=== PATIENT | female | born 1940 | race Caucasian/White ===

== ENCOUNTER 2018-08-01 09:42 | Outpatient (CLI) | payer MEDICARE, OTHER ==
--- NOTE | 2018-08-01 10:28 | RAD ---
AP and lateral views lumbar spine Spinal stenosis AP and lateral views lumbar spine demonstrates 5 nonrib-bearing lumbar vertebra. A midthoracic dorsal column stimulator is in place. There is vacuum disc changes seen at the L5-S1 intervertebral disc space. Mild anterolisthesis of L4 on L5 seen. No evidence of acute fracture seen. Atherosclerotic calcific lesions seen in the abdominal aorta. IMPRESSION: L5-S1 intervertebral disc space height loss and vacuum disc changes.
--- NOTE | 2018-08-01 10:30 | RAD ---
Exam: 3 views of the thoracic spine HISTORY: Spinal stenosis with neurogenic pain; dorsal column stimulator COMPARISON: None FINDINGS: 3 views of the thoracic spine shows normal height and alignment of the vertebral bodies and intervertebral discs without fracture or subluxation. Small osteophytes are seen in the mid thoracic spine. A dorsal colon stimulator is seen with its tip at the T7 level. IMPRESSION: Mild degenerative changes of the thoracic spine as above.
== END 2018-08-01 09:43 | disposition home or self-care (01) ==
LOC: RAD 09:42
PROVIDERS: ATTEND Nurse Practitioner Family
DX: M48.062 Spinal stenosis, lumbar region with neurogenic claudication (principal); M47.814 Spondylosis without myelopathy or radiculopathy, thoracic region
CPT/HCPCS: 72072; 72100

== ENCOUNTER 2019-11-20 14:41 | Observation (INO) | payer MEDICARE, OTHER ==
[2019-11-20 15:09] LABS: #Basophils 0.1 thou/uL (0.0-0.2); #Lymphocytes 2.4 thou/uL (1.20-3.40); #Monocytes 0.4 thou/uL (0.11-0.59); #Neutrophils 4.6 thou/uL (1.40-6.50); %Eosinophils 0.3 % (0.0-10.0); %Lymphocytes 31.8 % (21.0-51.0); %Monocytes 5.4 % (0.0-10.0); %Neutrophils 61.4 % (42.0-75.0); Hemoglobin 11.5 g/dL (12.0-16.0); Mean Corpuscular HGB CONC 33.8 g/dL (32.0-36.0); Mean Corpuscular Hemoglobin 33.2 pg (27.0-31.0); Mean Corpuscular Volume 98.4 fL (78.0-98.0); Mean Platelet Volume 8.3 fL (7.4-10.4); Platelet Count 245 thou/uL (130-400); RBC Distribution Width 11.3 % (11.5-14.5); Red Blood Cell (RBC) Count 3.45 mill/uL (4.20-5.40); White Blood Cell (WBC) Count 7.4 thou/uL (4.8-10.8)
[2019-11-20 15:11] LABS: PTT 23.7 sec (22.9-36.1); Prothrombin Time 13.4 sec (12.0-14.7)
[2019-11-20 15:25] LABS: ALT (SGPT) 15 U/L (8-55); AST (SGOT) 18 U/L (5-34); Albumin 4.8 g/dL (3.4-4.8); Alkaline Phosphatase 59 U/L (40-110); Anion Gap 18 mmol/L (10-20); BUN (Urea Nitrogen) 63 mg/dL (9.8-20.1); Bilirubin, Total 0.3 mg/dL (0.2-1.2); CK (CPK) 33 U/L (29-168); Calc. Creatinine Clearance 0 mL/min (70-130); Carbon Dioxide 23 mmol/L (23-31); Chloride 104 mmol/L (98-107); Estimated GFR-MDRD 14; Globulin 2.5 g/dL (2.4-3.5); Glucose 113 mg/dL (83-110); Potassium 4.6 mmol/L (3.5-5.1); Protein, Total 7.3 g/dL (6.0-8.3); Sodium 140 mmol/L (136-145)
--- NOTE | 2019-11-20 15:46 | CT ---
CT BRAIN WITHOUT CONTRAST: HISTORY: Level 2 stroke. Right-sided numbness and tingling which is resolved FINDINGS: No evidence of acute infarct, hemorrhage, midline shift or abnormal extra-axial fluid collections is seen. There is evidence of chronic small vessel ischemic disease. The ventricular size is appropriate and the basilar cisterns are patent. The bony calvarium is intact. The visualized paranas al sinuses and mastoid air cells are well aerated. IMPRESSION: No CT evidence of acute intracranial process. Discussed over the telephone with ER physician Dr. Charisse Walker at 3:42 PM
[2019-11-20] MEDS ORDERED: Aspirin Chewable 81 MG TAB ONE (16:48)
[2019-11-20] MEDS ORDERED: Acetaminophen 325 MG TAB PO PRN (18:03)
[2019-11-20] MEDS ORDERED: Acetaminophen 650 MG Suppository PR PRN (18:03)
--- NOTE | 2019-11-20 18:59 | HP ---
TIME OF ASSESSMENT: 1700 hours. CHIEF COMPLAINT: Right-sided numbness and weakness. PRIMARY CARE PHYSICIAN: Tyrese Isaacs MD HISTORY OF PRESENT ILLNESS: Ms. Green is a 78-year-old woman, who presents with complaints of right upper and lower extremity numbness and tingling that woke her from sleep at approximately 2 a.m. this morning. The patient states that she was lying on her left side. Denies having any altered sensation or weakness to the right side of her face. She eventually fell back asleep and states she woke up at 9 a.m. this morning and though she did not have any residual symptoms, she called her primary care physician, who advised her to come in to the emergency department for further assessment and workup. The patient reports having similar symptoms one week ago, which again happened during her sleep and woke her up in the morning. The patient states at that time it had lasted several hours. She did not attempt to get up or do anything, but eventually her symptoms resolved on their own. She is unsure how long exactly it lasted, but states it was "a matter of hours." Denies experiencing any associated dizziness. No headaches or loss of vision. Reports noting some difficulty with her hearing today and states that it felt like sounds are muffled. Denies any ringing in her ears. Denies any changes in her speech. When she did eventually wake up and got ready to come to the ER. She did not experience gait disturbances. Reports being well in herself in recent days. Denies any changes with her appetite. No fevers. No chills or sweats. No chest pain, palpitations, or shortness of breath. No abdominal pain. She does suffer from chronic back pain and has a nerve stimulator in her mid back. She did call to see if her symptoms were associated with the stimulator, but was told it was unlikely as she experienced right upper extremity weakness and tingling, which is at the level above the stimulator. The patient denies any neck pain, discomfort, or stiffness. At present, she is back to her normal baseline. EMERGENCY DEPARTMENT COURSE: In the emergency department, she had an EKG done that showed normal sinus rhythm with a heart rate of 61. A CT of the head showed no acute intracranial process. Laboratory studies done showed a white count of 7.4, hemoglobin 11.5, hematocrit 33.9, platelets 245, glucose 107, sodium 140, potassium 4.6, BUN 63, creatinine 3.27, GFR 14. CK 33. Initial troponin negative. Magnesium 2. TSH 1.8. She was given 1 L of normal saline and 325 mg of aspirin. PAST MEDICAL HISTORY: 1. Hyperlipidemia, hypertension, pulmonary disease. 2. Sleep apnea. 3. Anxiety. PAST SURGICAL HISTORY: 1. Appendectomy. 2. Cholecystectomy. 3. Hysterectomy. 4. Back surgery. SOCIAL HISTORY: The patient lives at home with her . Reports drinking alcohol socially. Denies any tobacco use or illicit drug use. ALLERGIES: 1. ATENOLOL. 2. ATORVASTATIN. 3. GABAPENTIN. 4. LISINOPRIL. 5. TRAMADOL. CURRENT MEDICATIONS: 1. Chlorthalidone. 2. Verapamil. 3. Olmesartan. 4. Tizanidine. PHYSICAL EXAMINATION: GENERAL: The patient appears well developed, well nourished, and is in no acute distress. She is found resting comfortably on a stretcher. VITAL SIGNS: Temperature 98.1, pulse 60, blood pressure 156/73, respirations 18, O2 saturation 100% on room air. HEENT: Normocephalic and atraumatic. Pupils are equal, round, and reactive to light. Sclerae icterus. Oropharynx is clear. NECK: Supple. LUNGS: Clear to auscultation bilaterally without any wheezes, rales, or rhonchi. CARDIAC: Regular rate and rhythm. ABDOMEN: Soft, nontender, nondistended. Normoactive bowel sounds present. No guarding or rigidity. No renal angle tenderness. EXTREMITIES: No lower leg swelling or edema. NEUROLOGIC: Alert and oriented x3. Extraocular movements intact. Facial sensation normal and facial movements normal. Speech normal. Upper and lower extremities with 5/5 power and normal sensation. Coordination intact. Overall, no neuro deficits on exam. SKIN: Warm and dry. INVESTIGATIONS: As mentioned above in HPI. IMPRESSION AND PLAN: Ms. Green is a 78-year-old woman, who is being admitted for management of the following. 1. Cerebrovascular accident rule out. She reports having two separate episodes of right upper and lower extremity numbness and weakness. Symptoms have fully resolved. She does have a nerve stimulator for low back pain, but this is located in the mid back and her symptoms included the right upper extremity. CT head unremarkable. She is being admitted for further cerebrovascular accident workup. We will order an echo, MRI of the brain and consult Neurology. We will obtain carotid Dopplers. We will check lipid panel with morning labs. 2. Hypertension. Monitor blood pressure. Reconcile home medications once verified. 3. Acute kidney injury. The patient with a creatinine of 3.27 and GFR of 14. This is significantly altered from four years ago when her renal function was essentially normal, at which time, her GFR was 70. She has been given 1 L of normal saline in the ED. We will continue IV fluids and we will consult Nephrology given how reduced her GFR is. Continue to monitor renal function. Hold any nephrotoxic medications. 4. Hyperlipidemia. Reconcile home medications once verified. Again, we will check lipid panel with morning labs. 5. Chronic back pain. The patient has pain stimulator. We will reconcile home medications as appropriate. 6. Code status full. Surrogate decision maker is her , Pollo Green. Case discussed with Dr. Frederick, who agrees with plan of care as described above. Job ID: [id number]
[2019-11-20 19:04] VITALS: BMI 34.6
--- NOTE | 2019-11-20 21:26 | CON ---
DATE OF CONSULTATION: REASON FOR CONSULTATION: Elevated creatinine. HISTORY OF PRESENT ILLNESS: This is a very pleasant 78-year-old female who presented to the hospital with right-sided numbness and weakness. The patient last reported creatinine was 3.2, her prior creatinine was 0.8 four years ago. The patient denies any nausea, vomiting, or chest pain. The patient is taking hydrochlorothiazide, is not taking any NSAID. PAST MEDICAL HISTORY: Hypertension, pulmonary disease, sleep apnea, anxiety, appendectomy, cholecystectomy, hysterectomy, and back surgery. SOCIAL HISTORY: No alcohol or drug abuse. FAMILY HISTORY: Negative for ESRD. ALLERGIES: REVIEWED. MEDICATIONS: Home medication list reviewed. Hospital medications list reviewed. REVIEW OF SYSTEMS: 15-point review of system was performed, negative except for positives noted above. HEENT: Eyes intact, no diplopia. Ears: No hearing loss or earache. Nose: No discharge or bleeding. CHEST: No cough or phlegm. ABDOMEN: No nausea or vomiting. GENITOURINARY: No hematuria. No Mukherjee catheter. MUSCULOSKELETAL: No low back pain. No joint swelling or pain. NEUROLOGICAL: No syncope. No seizures. SKIN: No complaints of rash or itching. PSYCHIATRIC: No depression. CONSTITUTIONAL: No weight loss or loss of appetite. PHYSICAL EXAMINATION: GENERAL: The patient is awake and alert. VITAL SIGNS: Afebrile, pulse 75, breathing 16, and blood pressure 142/68. HEENT: Head normocephalic and atraumatic. Eyes intact, no ulcers. Nose intact, no ulcers. Ears intact, no ulcers. NECK: Supple. No JVD. CHEST: Symmetrical and clear. CARDIOVASCULAR: Shows S1 and S2, no rub, no murmur. GASTROINTESTINAL: Abdomen is soft, bowel sounds positive. EXTREMITIES: Show no edema or ulcers. SKIN: Shows no rash or petechiae. MUSCULOSKELETAL: Shows no joint swelling or stiffness. GENITOURINARY: Shows no Mukherjee or CVA tenderness. NEUROLOGIC: As reported earlier. LABORATORY DATA: Creatinine 0.4. ASSESSMENT AND PLAN: 1. Acute kidney injury with chronic kidney disease, most likely due to chronic ischemic nephropathy versus acute tubular necrosis. We will repeat labs. We will order imaging. 2. Hypertension, stable. 3. Anemia, stable. 4. Medication based on GFR appropriate. No indication for dialysis. Job ID: [id number]
[2019-11-21 01:38] LABS: Bacteria/HPF None Seen HPF (None Seen); Bilirubin Negative (Negative); Blood, Urine Negative (Negative); Clarity Clear (Clear); Glucose, Urine (Dipstick) Normal (Negative); Ketone, Urine Negative (Negative); Leukocyte 250 Leu/uL (Negative); Nitrite Negative (Negative); Protein, Urine (Dipstick) 10 mg/dL (Neg-Trace); RBC/HPF 0-3 HPF (0-3); Specific Gravity, Urine 1.017 (1.002-1.036); Squamous Epithelial 0-3 HPF (0-3); Urobilinogen Normal mg/dL (Less than 2); WBC/HPF Greater than 50 HPF (0-3); pH, Urine 5.5 (5.0-9.0)
[2019-11-21 05:40] LABS: #Basophils 0.1 thou/uL (0.0-0.2); #Eosinphils 0.1 thou/uL (0.0-0.7); #Lymphocytes 2.2 thou/uL (1.20-3.40); #Monocytes 0.4 thou/uL (0.11-0.59); #Neutrophils 2.8 thou/uL (1.40-6.50); %Eosinophils 2.4 % (0.0-10.0); %Lymphocytes 38.9 % (21.0-51.0); %Monocytes 7.4 % (0.0-10.0); %Neutrophils 50.3 % (42.0-75.0); Hemoglobin 10.6 g/dL (12.0-16.0); Mean Corpuscular HGB CONC 32.6 g/dL (32.0-36.0); Mean Corpuscular Hemoglobin 32.4 pg (27.0-31.0); Mean Corpuscular Volume 99.3 fL (78.0-98.0); Platelet Count 206 thou/uL (130-400); RBC Distribution Width 11.2 % (11.5-14.5); Red Blood Cell (RBC) Count 3.27 mill/uL (4.20-5.40); White Blood Cell (WBC) Count 5.6 thou/uL (4.8-10.8)
[2019-11-21 06:07] LABS: Anion Gap 14 mmol/L (10-20); BUN (Urea Nitrogen) 44 mg/dL (9.8-20.1); Calc. Creatinine Clearance 40 mL/min (70-130); Calcium 9.3 mg/dL (7.8-10.44); Carbon Dioxide 21 mmol/L (23-31); Chloride 110 mmol/L (98-107); Cholesterol 227 mg/dl (< 200 Desired); Estimated GFR-MDRD 31; Glucose 105 mg/dL (83-110); HDL Cholesterol 57 mg/dL (>60 Neg Risk); LDL Cholesterol, Calculated 140 mg/dL; Potassium 4.4 mmol/L (3.5-5.1); Sodium 141 mmol/L (136-145); Triglycerides 148 mg/dL (Less than 150)
--- NOTE | 2019-11-21 07:38 | ULT ---
Exam: Bilateral renal ultrasound HISTORY: Acute kidney insufficiency COMPARISON: None FINDINGS: Right kidney: Normal cortical echotexture. No hydronephrosis. Right kidney measurements: 9.3 x 4 0.5, 0.3 cm. Left kidney: Normal cortical echotexture. No hydronephrosis Left kidney measurements 9.8 x 4.6 x 4.4 cm. Urinary bladder: Normal mucosa. Prevoid volume is 335 mm. IMPRESSION: No hydronephrosis.
[2019-11-21] MEDS ORDERED: Lorazepam 1 MG TAB PO PRN (07:48)
[2019-11-21] MEDS ORDERED: ALPRAZolam 0.25 MG TAB PO PRN (07:49)
[2019-11-21] MEDS ORDERED: cloNIDine 0.1 MG TAB PO PRN (07:50)
[2019-11-21] MEDS: Aspirin 325 mg Enteric Coated Tablet PO SCH (09:19)
[2019-11-21] MEDS: Famotidine 20 MG TAB PO SCH (09:19)
--- NOTE | 2019-11-21 10:37 | PRG ---
DATE OF SERVICE: 11/21/2019 SUBJECTIVE: This is a 78-year-old female, being seen for acute kidney injury. The patient denies any nausea, vomiting, or chest pain. OBJECTIVE: General: The patient is awake and alert. Vital signs: Pulse 75, breathing 16, blood pressure was 144/66. HEENT: Head normocephalic and atraumatic. Eyes intact, no ulcers. Nose intact, no ulcers. Ears intact, no ulcers. Neck: Supple. No JVD. Chest: Symmetrical and clear. Cardiovascular: Shows S1 and S2, no rub, no murmur. Gastrointestinal: Abdomen is soft, bowel sounds positive. Extremities: Show no edema or ulcers. Skin: Shows no rash or petechiae. Musculoskeletal: Shows no joint swelling or stiffness. Genitourinary: Shows no Mukherjee or CVA tenderness. Neurologic: Motor intact. Cranial nerves intact. LABORATORY DATA: Hemoglobin 10.6. Creatinine is 1.68. ASSESSMENT AND PLAN: 1. Acute kidney injury, improved. 2. Hypertension, stable. 3. Anemia, stable. 4. Continue hydration. No indication for dialysis. Renal ultrasound is negative. Job ID: [id number]
--- NOTE | 2019-11-21 11:41 | CON ---
NEUROLOGY CONSULTATION DATE OF CONSULTATION: 11/21/2019 REASON FOR CONSULTATION: Episodes of right-sided paresthesias with weakness. HISTORY OF PRESENT ILLNESS: Ms. Green is a 78-year-old female with history significant for hypertension, hyperlipidemia, sleep apnea, anxiety, presented to the emergency room with complaint of right-sided paresthesia, which started around 02:00 a.m. this morning. Per the patient, she was lying on her left side and woke up with paresthesias. Per the patient, she has been having these symptoms on and off since the last 2 weeks, there has been ancestors during these episodes, she is unable to hear people around her and these episodes may last for several hours. The patient denies nausea, vomiting, headache, chest pain, abdominal pain, vertigo, loss of vision or loss of consciousness associated with these episodes. She also denies problems with swallowing or speech. REVIEW OF SYSTEMS: All 10 systems were reviewed and were negative except for the pertinent positives and negatives mentioned in the HPI. PAST MEDICAL HISTORY: 1. Hypertension. 2. Hyperlipidemia. 3. Sleep apnea. 4. Anxiety. 5. Pulmonary disease. PAST SURGICAL HISTORY: 1. Appendectomy. 2. Hysterectomy. 3. Cholecystectomy. 4. Back surgery. SOCIAL HISTORY: . Lives at home with her . Reports drinking occasionally. Denies smoking or illegal drug use. ALLERGIES: ATENOLOL, ATORVASTATIN, GABAPENTIN, LISINOPRIL, TRAMADOL. HOME MEDICATIONS: 1. Verapamil. 2. Tizanidine. 3. Olmesartan. 4. Chlorthalidone. PHYSICAL EXAMINATION: VITAL SIGNS: Blood pressure 150/70, pulse 80, respiratory rate 18. CVS: Regular rate and rhythm. CHEST: Clear. ABDOMEN: Soft. NECK: Supple. NEUROLOGICAL: Mental status; the patient is alert and oriented to person, place , and time. Speech is normal. Recent and remote memory, intact. Fund of knowledge is appropriate. Cerebellar, finger-nose testing intact. Motor; muscle tone and bulk are normal. Strength 5/5 bilaterally. Sensory intact. Gait deferred due to the patient's safety reasons. DATA REVIEWED: I reviewed the CT scan, which was unremarkable for acute changes. ASSESSMENT AND PLAN: Ms. Green is a 78-year-old female, who was admitted because of episodes of focal paresthesias, at times associated with problems with hearing. Differential diagnosis includes TIA versus seizures. I recommend repeat head CT since the patient cannot tolerate MRI of the brain. I recommend EEG to rule out underlying seizure activity. I did recommend 2D echo and carotid Dopplers. Telemetry. Monitor blood pressure and blood glucose. The patient has acute kidney injury, Nephrology is on board. Neuro checks every 4 hours. Continue home medications. Continue medical management per primary team. We will continue to follow. I recommend aspirin and high-intensity statin for secondary stroke prevention. Check hemoglobin A1c, fasting lipid panel, and TSH. We will continue to follow. Thank you for the consult. Job ID: [id number] [email or web address]
[2019-11-21 12:13] LABS: SARS-CoV-2 MS2 Positive; SARS-CoV-2 N Gene Negative; SARS-CoV-2 S Gene Negative; SARS-CoV-2 by NAA Not Detected (NotDetected); SARS-CoV-2 orf1ab Negative
--- NOTE | 2019-11-21 13:25 | PDOC.HOSPP ---
- Subjective Encounter Date: 11/21/19 Encounter Time: 13:15 Subjective: Patient seen and examined for transient ischemic attack. Patient denies any new headache, double vision, seizure, chest pain, palpitations or new focal deficit. - Objective Vital Signs & Weight: Vital Signs (12 hours) Temp Pulse Resp BP Pulse Ox 11/21/19 11:41 99.4 F 74 18 171/71 H 95 11/21/19 08:00 98.8 F 76 18 171/79 H 95 11/21/19 04:00 97.9 F 70 16 144/66 H 94 L Weight Weight 189 lb 6.4 oz I&O: 11/20/19 11/21/19 11/22/19 06:59 06:59 06:59 Intake Total 300 Output Total 700 Balance -400 Result Diagrams: 11/21/19 05:25 11/21/19 05:25 Additional Labs: Accuchecks 11/20/19 14:59 POC Glucose 107 EKG Reviewed by me: Yes (Sinus rhythm) Hospitalist ROS - Review of Systems Respiratory: denies: cough, dry, shortness of breath, hemoptysis, SOB with excertion, pleuritic pain, sputum, wheezing, other Cardiovascular: denies: chest pain, palpitations, orthopnea, paroxysmal noc. dyspnea, edema, light headedness, other Gastrointestinal: denies: nausea, vomiting, abdominal pain, diarrhea, constipation, melena, hematochezia, other - Medication Medications: Active Medications Generic Name Dose Route Start Last Admin Trade Name Freq PRN Reason Stop Dose Admin Aspirin 325 mg 11/21/19 09:00 11/21/19 09:19 Ecotrin PO 325 mg DAILY JORDAN Administration Famotidine 20 mg 11/21/19 09:00 11/21/19 09:19 Pepcid PO 20 mg DAILY JORDAN Administration Lorazepam 1 mg 11/21/19 07:48 11/21/19 09:19 Ativan PO 1 mg DAILY PRN Administration Claustrophobia - Exam General Appearance: NAD Heart: RRR, no gallops, no rubs, normal peripheral pulses Respiratory: no wheezes, no rales, no ronchi, normal chest expansion Gastrointestinal: soft, non-tender, non-distended, normal bowel sounds, no guarding, no rigidity Extremities: no cyanosis, no clubbing Neurological: normal sensation to touch, no weakness, no new deficit Psychiatric: normal affect, A&O x 3 Hosp A/P - Plan DVT proph w/SCDs Transient ischemic attack -resolved Acute kidney injury on CKD stage II Obesity with a BMI 24.6 Statin allergy Hypertension Chronic anemia suspected due to nutritional deficiency Anxiety with claustrophobia Obstructive sleep apnea Plan: CT brain was negative for acute process. Ultrasound was negative for obstructive uropathy. Patient has been evaluated by nephrology and neurology. Patient declined MRI due to extreme claustrophobia. Repeat CT brain has been ordered per neurology recommendation continue aspirin for now. Patient is statin allergic. Echo has been done report pending at this time. Await carotid Doppler. EEG is currently being obtained per neurology recommendation. Discharge home once cleared by neurology.
--- NOTE | 2019-11-21 15:16 | CT ---
CT BRAIN WITHOUT CONTRAST: HISTORY: Right-sided numbness and tingling COMPARISON: Previous day FINDINGS: No evidence of acute infarct, hemorrhage, midline shift or abnormal extra-axial fluid allie ections is seen. There is evidence of chronic small vessel ischemic disease. The ventricular size is appropriate and the basilar cisterns are patent. The bony calvarium is intact. The visualized para nasal sinuses and mastoid air cells are well aerated. IMPRESSION: No CT evidence of acute intracranial process.
--- NOTE | 2019-11-21 16:01 | EEG ---
DATE OF SERVICE: 11/21/2019 ATTENDING PHYSICIAN: Jeni Gomes MD This EEG was performed using 24-channel [employer] video digital EEG machine with 24-disk electrodes. This was an extended 2 hours 5 minutes of inpatient video EEG recording. Digital analysis of the EEG was done for spike and seizure detection, which revealed no abnormalities. BACKGROUND: The posterior background rhythm is 9 to 10 hertz. The background rhythm attenuates with eye opening and enhances with eye closure. HYPERVENTILATION: Not performed. PHOTIC STIMULATION: No significant response seen with photic stimulation. SLEEP: Drowsiness is observed. EEG DIAGNOSIS: Normal awake and drowsy EEG. Job ID: [id number]
--- NOTE | 2019-11-21 17:30 | ULT ---
EXAM: Carotid ultrasound HISTORY: Stroke/TIA COMPARISON: None TECHNIQUE: Multiplanar grayscale and color Doppler images were obtained in a carotid ultrasound. Spec tral analysis of the Doppler waveforms were performed. FINDINGS: No significant plaque is visualized in either internal carotid artery. No significant plaque is seen in either common carotid artery. The Doppler waveforms are normal in the visualized vessels. Peak systolic velocity in the right internal carotid artery 78 cm/s. Peak systolic velocity in the right common carotid artery 134 cm/s. The right ICA/CCA ratio is 0.6. Peak systolic velocity in the left internal carotid artery 110 cm/s. Peak systolic velocity in the left common carotid artery 109 cm/s. The left ICA/CCA ratio is 1.0. Both vertebral arteries demonstrate antegrade flow without focal stenosis IMPRESSION: No evidence of hemodynamically significant stenosis.
[2019-11-21] MEDS ORDERED: tiZANidine HCl 4 MG TAB PO SCH (21:00)
[2019-11-22 07:37] VITALS: BP 150/73; TEMP 98.1
[2019-11-22] MEDS: Famotidine 20 MG TAB PO SCH (08:40)
[2019-11-22] MEDS: Aspirin 325 mg Enteric Coated Tablet PO SCH (08:40)
[2019-11-22 09:50] LABS: Anion Gap 9 mmol/L (10-20); BUN (Urea Nitrogen) 25 mg/dL (9.8-20.1); Calc. Creatinine Clearance 59 mL/min (70-130); Calcium 9.6 mg/dL (7.8-10.44); Carbon Dioxide 28 mmol/L (23-31); Chloride 106 mmol/L (98-107); Estimated GFR-MDRD 48; Glucose 94 mg/dL (83-110); Sodium 139 mmol/L (136-145)
--- NOTE | 2019-11-22 13:31 | PRG ---
DATE OF SERVICE: 11/22/2019 SUBJECTIVE: A 78-year-old female, being seen for acute kidney injury. The patient denies any nausea, vomiting, or chest pain. OBJECTIVE: GENERAL: The patient is awake and alert. VITAL SIGNS: Pulse 59, breathing 16, blood pressure was 141/62. HEENT: Head normocephalic and atraumatic. Eyes intact, no ulcers. Nose intact, no ulcers. Ears intact, no ulcers. Neck: Supple. No JVD. Chest: Symmetrical and clear. Cardiovascular: Shows S1 and S2, no rub, no murmur. Gastrointestinal: Abdomen is soft, bowel sounds positive. Extremities: Show no edema or ulcers. Skin: Shows no rash or petechiae. Musculoskeletal: Shows no joint swelling or stiffness. Genitourinary: Shows no Mukherjee or CVA tenderness. Neurologic: Motor intact. Cranial nerves intact. LABORATORY DATA: Hemoglobin 10.6, creatinine 1.4. ASSESSMENT AND PLAN: 1. Acute kidney injury, improved. 2. Chronic kidney disease, stage 3, stable. 3. Hypertension. Restart verapamil. Hold off on ARB and hydrochlorothiazide. The patient can follow up with her primary care physician. Avoid dehydration. . Job ID: [id number]
--- NOTE | 2019-11-22 14:45 | DIS ---
DATE OF ADMISSION: 11/20/2019 DATE OF DISCHARGE: 11/22/2019 DISCHARGE DISPOSITION: Home. FOLLOWUP: 1. Follow up with primary care physician, Dr. Tyrese Isaacs in 1 week. 2. Follow up with Neurology, Dr. Hazel in 2 weeks. 3. Follow up with Nephrology, Dr. Hou in 1 week. The patient was seen and examined on the day of discharge. Denies any new complaints. No chest pain, shortness of breath, palpitations or stroke-like symptoms reported. BRIEF HOSPITAL COURSE: The patient is a 78-year-old female with hypertension, hyperlipidemia, and anxiety, presented to the hospital with right-sided numbness and weakness. Please refer to the history and physical for further details. The patient was admitted to the Stroke Unit with a diagnosis of transient ischemic attack rule out CVA. Initial CT scan of the brain was negative for acute intracranial process. She underwent a carotid Doppler that was negative for hemodynamically significant stenosis. An echocardiogram was obtained that showed ejection fraction of 60% to 65% with grade 1 of 3 diastolic dysfunction, mild mitral regurgitation, mild tricuspid regurgitation and mildly dilated left atrium. The patient was evaluated by Neurology. An EEG was obtained per Neurology recommendation that was normal. MRI was ordered however due to extreme claustrophobia, this was canceled by Neurology. Repeat CT scan was done instead that was negative for acute findings. She has been started on low-dose aspirin. Please note, the patient is allergic to statins. The patient was also found to have significant acute kidney injury with a creatinine of 3.27 on admission. Renal ultrasound was negative for obstructive uropathy. The patient was evaluated by Nephrology as well. Chlorthalidone and olmesartan were held. Renal function has significantly improved to 1.10. She was advised to continue holding chlorthalidone and olmesartan for now. She was advised to monitor her blood pressure on a daily basis and to maintain a log. A basic metabolic profile after 1 week is recommended. Primary care physician advised to follow. FINAL DIAGNOSES: 1. Transient ischemic attack. The patient has been started on low-dose aspirin. 2. Acute kidney injury on chronic kidney disease stage 2, resolved. 3. Obesity with a BMI of 34.6. 4. Statin allergy. 5. Hypertension. 6. Chronic anemia suspected due to nutritional deficiency. 7. Anxiety with claustrophobia. 8. Obstructive sleep apnea. 9. Chronic low back pain. The patient understands the above plan of care. Job ID: [id number]
== END 2019-11-22 11:18 | disposition home or self-care (01) ==
LOC: ERS 14:41 → 2SE 16:53
PROVIDERS: ADMIT Internal Medicine; ATTEND Internal Medicine
DX: G45.9 Transient cerebral ischemic attack, unspecified (principal); I12.9 Hypertensive chronic kidney disease with stage 1 through stage 4 chronic kidney disease, or unspecified chronic kidney disease; N18.2 Chronic kidney disease, stage 2 (mild); D63.1 Anemia in chronic kidney disease; N17.9 Acute kidney failure, unspecified; F41.9 Anxiety disorder, unspecified; F40.240 Claustrophobia; G47.33 Obstructive sleep apnea (adult) (pediatric); G89.29 Other chronic pain; M54.5 Low back pain; E78.5 Hyperlipidemia, unspecified; J98.4 Other disorders of lung; E66.9 Obesity, unspecified; Z68.34 Body mass index [BMI] 34.0-34.9, adult; Z79.899 Other long term (current) drug therapy; Z88.5 Allergy status to narcotic agent; Z88.8 Allergy status to other drugs, medicaments and biological substances; Z20.828 Contact with and (suspected) exposure to other viral communicable diseases
CPT/HCPCS: 70450 ×2; 76770; 80048 ×2; 80061; 81001; 82550; 82962; 83735; 84484; 85025; 85610; 85730; 93005; 93306; 93880; 94760; 95712; 95816; 95819; 95957; 96360; 96361; 97139 ×3; 99285; U0003; 36415; 36416; 80053; 84443; 87635; G0378

== ENCOUNTER 2020-10-06 07:55 | Outpatient (CLI) | payer MEDICARE, OTHER | END 2020-10-06 07:56 | disposition home or self-care (01) | LOC: SCSMRI 07:55 | PROVIDERS: ATTEND Orthopaedic Surgery | DX: M23.92 Unspecified internal derangement of left knee (principal); S83.242A Other tear of medial meniscus, current injury, left knee, initial encounter; M25.462 Effusion, left knee; M71.22 Synovial cyst of popliteal space [Baker], left knee ==

== ENCOUNTER 2020-11-26 10:15 | Outpatient (CLI) | payer MEDICARE ==
[2020-11-26 11:29] LABS: #Eosinphils 0.1 10x3/uL (0.0-0.5); #Monocytes 0.5 10x3/uL (0.0-1.1); #Neutrophils 3.5 10x3/uL (1.5-8.4); %Basophils 0.7 % (0.0-2.0); %Eosinophils 1.3 % (0.0-6.0); %Lymphocytes 26.8 % (18.0-47.0); %Monocytes 8.3 % (0.0-10.0); %Neutrophils 62.5 % (40.0-75.0); Hemoglobin 12.2 g/dL (12.0-15.5); Mean Corpuscular Hemoglobin 31.2 pg (27.0-33.0); Mean Corpuscular Volume 91.8 fl (81.6-98.3); Mean Platelet Volume 9.9 fl (7.4-10.4); Platelet Count 304 10x3/uL (150-450); Red Blood Cell (RBC) Count 3.91 10x6/uL (3.90-5.03); White Blood Cell (WBC) Count 5.6 10x3/uL (3.5-10.5)
[2020-11-26 11:51] LABS: INR-International Normal Ratio 0.9; Prothrombin Time 10.4 sec (9.5-12.1)
[2020-11-26 12:05] LABS: Anion Gap 15 mmol/L (10-20); BUN (Urea Nitrogen) 17 mg/dL (9.8-20.1); Calc. Creatinine Clearance 0 mL/min (70-130); Calcium 10.4 mg/dL (7.8-10.44); Carbon Dioxide 25 mmol/L (23-31); Chloride 97 mmol/L (98-107); Glucose 122 mg/dL (83-110); Potassium 3.9 mmol/L (3.5-5.1); Sodium 133 mmol/L (136-145)
[2020-11-26 18:30] LABS: SARS-CoV-2 PCR by NAA Not Detected (NotDetected)
== END 2020-11-26 10:16 | disposition home or self-care (01) ==
LOC: LABBT 10:15
PROVIDERS: ATTEND Orthopaedic Surgery
DX: Z01.818 Encounter for other preprocedural examination (principal); S83.242A Other tear of medial meniscus, current injury, left knee, initial encounter; Z20.822 Contact with and (suspected) exposure to COVID-19
CPT/HCPCS: 80048; 85025; 85610; 93005; U0003; U0005; 93010

== ENCOUNTER 2020-12-01 07:25 | Day surgery (SDC) | payer MEDICARE, OTHER ==
[2020-11-30 10:35] VITALS: BMI 33.5
[2020-12-01] MEDS ORDERED: PROPOFOL 20 ML ONE (09:08)
[2020-12-01] MEDS ORDERED: Bupivacaine PF 0.5% 30 ML VIAL ONE (09:20)
[2020-12-01] MEDS ORDERED: Lidocaine 2% w/Epinephrine 1:200K 20 ML VIAL ONE (09:20)
[2020-12-01] MEDS ORDERED: Rocuronium Bromide 10 MG/ML (10ML VIAL) ONE (09:54)
[2020-12-01] MEDS ORDERED: Ondansetron PF 4 MG/2 ML Vial ONE (09:54)
[2020-12-01] MEDS ORDERED: PROPOFOL 200 MG/20 ML VIAL ONE (09:54)
[2020-12-01] MEDS ORDERED: Glycopyrrolate 0.2 MG/ML 5 ML SYRINGE ONE (09:54)
[2020-12-01] MEDS ORDERED: Dexamethasone 20 MG/5 ML VIAL ONE (09:54)
[2020-12-01] MEDS ORDERED: Lidocaine 1% PF 5 ML VIAL ONE (09:54)
[2020-12-01] MEDS ORDERED: Ketorolac Tromethamine 30 MG/ML VIAL ONE (09:54)
[2020-12-01] MEDS ORDERED: Fentanyl 100 MCG/2 ML VIAL ONE (09:56)
[2020-12-01] MEDS ORDERED: Bupivacaine 0.25% HCL 30 ML VIAL ONE (10:00)
[2020-12-01] MEDS ORDERED: EPINEPHrine 1 MG/ML AMP ONE (10:00)
== END 2020-12-01 14:45 | disposition home or self-care (01) ==
LOC: SDC 07:25
PROVIDERS: ATTEND Orthopaedic Surgery
PROC: 0SBD4ZZ Excision of Left Knee Joint, Percutaneous Endoscopic Approach (ICD-10-PCS; principal; 2020-12-01)
DX: S83.242A Other tear of medial meniscus, current injury, left knee, initial encounter (principal); M94.262 Chondromalacia, left knee; G47.33 Obstructive sleep apnea (adult) (pediatric); I12.9 Hypertensive chronic kidney disease with stage 1 through stage 4 chronic kidney disease, or unspecified chronic kidney disease; N18.30 Chronic kidney disease, stage 3 unspecified; E78.5 Hyperlipidemia, unspecified; K21.9 Gastro-esophageal reflux disease without esophagitis; G43.909 Migraine, unspecified, not intractable, without status migrainosus; Z86.73 Personal history of transient ischemic attack (TIA), and cerebral infarction without residual deficits; Z87.891 Personal history of nicotine dependence; Z79.82 Long term (current) use of aspirin; Z79.899 Other long term (current) drug therapy; Z88.1 Allergy status to other antibiotic agents; Z88.5 Allergy status to narcotic agent; Z88.6 Allergy status to analgesic agent; Z88.8 Allergy status to other drugs, medicaments and biological substances
CPT/HCPCS: J0171; J0690; J1100; J1885; J2405; J2704; J3010; S0020

== ENCOUNTER 2021-03-02 12:27 | Outpatient (CLI) | payer MEDICARE | END 2021-03-02 12:28 | disposition home or self-care (01) | LOC: BICMAMMO 12:27 | PROVIDERS: ATTEND Internal Medicine | DX: Z12.31 Encounter for screening mammogram for malignant neoplasm of breast (principal) | CPT/HCPCS: 77063; 77067 ==

== ENCOUNTER 2021-08-25 13:28 | Outpatient (CLI) | payer MEDICARE | END 2021-08-25 13:29 | disposition home or self-care (01) | LOC: SCSMRI 13:28 | PROVIDERS: ATTEND Orthopaedic Surgery | DX: M25.552 Pain in left hip (principal); M16.12 Unilateral primary osteoarthritis, left hip ==

== ENCOUNTER 2021-10-27 09:28 | Outpatient (CLI) | payer MEDICARE ==
[2021-10-27 10:19] LABS: #Basophils 0.1 10x3/uL (0.0-0.2); #Eosinphils 0.1 10x3/uL (0.0-0.5); #Monocytes 0.5 10x3/uL (0.0-1.1); #Neutrophils 3.6 10x3/uL (1.5-8.4); %Basophils 0.9 % (0.0-2.0); %Eosinophils 1.5 % (0.0-6.0); %Lymphocytes 22.7 % (18.0-47.0); %Monocytes 8.7 % (0.0-10.0); Hemoglobin 11.9 g/dL (12.0-15.5); Mean Corpuscular HGB CONC 34.3 g/dL (32.0-36.0); Mean Corpuscular Hemoglobin 31.4 pg (27.0-33.0); Mean Corpuscular Volume 91.6 fl (81.6-98.3); Mean Platelet Volume 9.6 fl (7.4-10.4); Platelet Count 290 10x3/uL (150-450); RBC Distribution Width 13.8 % (11.5-14.5); Red Blood Cell (RBC) Count 3.79 10x6/uL (3.90-5.03); White Blood Cell (WBC) Count 5.5 10x3/uL (3.5-10.5)
[2021-10-27 10:45] LABS: INR-International Normal Ratio 0.9; Prothrombin Time 10.2 sec (9.5-12.1)
[2021-10-27 10:53] LABS: Anion Gap 15 mmol/L (10-20); BUN (Urea Nitrogen) 15 mg/dL (9.8-20.1); Calc. Creatinine Clearance 0 mL/min (70-130); Calcium 9.7 mg/dL (7.8-10.44); Carbon Dioxide 25 mmol/L (23-31); Chloride 97 mmol/L (98-107); Estimated GFR 65; Glucose 129 mg/dL (83-110); Potassium 3.6 mmol/L (3.5-5.1); Sodium 133 mmol/L (136-145)
== END 2021-10-27 09:29 | disposition home or self-care (01) ==
LOC: LABBT 09:28
PROVIDERS: ATTEND Orthopaedic Surgery
DX: Z01.812 Encounter for preprocedural laboratory examination (principal); M16.12 Unilateral primary osteoarthritis, left hip; Z20.822 Contact with and (suspected) exposure to COVID-19
CPT/HCPCS: 80048; 85025; 85610; 87081; 87811

== ENCOUNTER 2021-10-27 09:30 | Inpatient (IN) | payer MEDICARE ==
[2021-10-28 15:37] VITALS: BMI 33.5
[2021-11-01] MEDS ORDERED: Vancomycin (BATCH) 1.5 GRAM/300 ML BAG ONE ×2 (08:20→12:53)
[2021-11-01] MEDS ORDERED: Sodium Chloride 0.9% 200 ML ONE (08:20)
[2021-11-01] MEDS ORDERED: cefOXitin 2 GM VIAL ONE (08:20)
[2021-11-01] MEDS ORDERED: Tranexamic Acid 1,000 MG/10 ML VIAL ONE (08:20)
[2021-11-01] MEDS ORDERED: Ondansetron PF 4 MG/2 ML Vial ONE (10:13)
[2021-11-01] MEDS ORDERED: Glycopyrrolate 0.2 MG/ML 5 ML SYRINGE ONE (10:13)
[2021-11-01] MEDS ORDERED: PROPOFOL 200 MG/20 ML VIAL ONE (10:13)
[2021-11-01] MEDS ORDERED: Lidocaine 1% PF 5 ML VIAL ONE (10:13)
[2021-11-01] MEDS ORDERED: Dexamethasone 20 MG/5 ML VIAL ONE (10:13)
[2021-11-01] MEDS ORDERED: Rocuronium Bromide 10 MG/ML (10ML VIAL) ONE (10:13)
[2021-11-01] MEDS ORDERED: fentaNYL Citrate/PF 100 MCG/2 ML SYRINGE ONE (10:32)
[2021-11-01] MEDS ORDERED: Zolpidem Tartrate 5 MG TAB PO PRN ×2 (11:39→12:15)
[2021-11-01] MEDS ORDERED: Promethazine HCl 25 MG/ML VIAL IM PRN ×3 (11:39→12:15)
[2021-11-01] MEDS ORDERED: CEFAZOLIN 2 GM in Sodium Chloride 0.9% 100 ML IVPB SCH (11:39)
[2021-11-01] MEDS ORDERED: Ondansetron PF 4 MG/2 ML Vial IVP PRN ×2 (11:39→12:15)
[2021-11-01] MEDS ORDERED: diphenhydrAMINE 25 MG CAP PO PRN ×2 (11:39→12:15)
[2021-11-01] MEDS ORDERED: Acetaminophen 325 MG TAB PO PRN (11:39)
[2021-11-01] MEDS ORDERED: Vancomycin 1.5 GRAM/300 ML BAG 1.5 GM in Premix Bag 1 BAG IVPB SCH (11:45)
[2021-11-01] MEDS ORDERED: Promethazine HCl 25 MG/ML VIAL IVPB PRN (11:54)
[2021-11-01] MEDS ORDERED: Ondansetron HCl/PF 4 MG/2 ML Vial IVP PRN (11:54)
[2021-11-01] MEDS ORDERED: Acetaminophen 500 MG TAB PO PRN (12:14)
[2021-11-01] MEDS ORDERED: Fentanyl CADD 100 ML IVPB SCH (12:15)
[2021-11-01] MEDS ORDERED: Naloxone HCl 0.4 mg/ml Vial IV PRN (12:15)
[2021-11-01] MEDS ORDERED: diphenhydrAMINE 50 MG/ML VIAL IM/IV PRN (12:15)
[2021-11-01] MEDS: CEFAZOLIN 2 GM in Sodium Chloride 0.9% 100 ML IVPB SCH (18:25)
[2021-11-01] MEDS: Sodium Chloride 0.9% 1,000 ML IV SCH ×2 (18:25→20:38)
[2021-11-01] MEDS: Ketorolac Tromethamine 30 MG/ML VIAL IVP SCH ×2 (18:32→23:27)
[2021-11-01] MEDS: Senokot S 8.6-50 MG TAB PO SCH (20:37)
[2021-11-01] MEDS: Aspirin 81 mg Enteric Coated Tablet PO SCH (20:37)
[2021-11-01] MEDS: Ferrous Gluconate 324 MG TAB PO SCH (20:38)
[2021-11-02] MEDS: CEFAZOLIN 2 GM in Sodium Chloride 0.9% 100 ML IVPB SCH (02:31)
[2021-11-02] MEDS: Sodium Chloride 0.9% 1,000 ML IV SCH ×2 (05:27→18:37)
[2021-11-02] MEDS: Ketorolac Tromethamine 30 MG/ML VIAL IVP SCH ×4 (05:31→23:42)
[2021-11-02 05:46] LABS: Hemoglobin 10.5 g/dL (12.0-16.0); Mean Corpuscular HGB CONC 32.4 g/dL (32.0-36.0); Mean Corpuscular Hemoglobin 31.8 pg (27.0-31.0); Mean Corpuscular Volume 98.4 fL (78.0-98.0); Platelet Count 255 thou/uL (130-400); RBC Distribution Width 12.2 % (11.5-14.5)
[2021-11-02] MEDS: Aspirin 81 mg Enteric Coated Tablet PO SCH ×2 (08:56→21:25)
[2021-11-02] MEDS: Senokot S 8.6-50 MG TAB PO SCH ×2 (08:56→21:25)
[2021-11-02] MEDS: Multivitamin W/ Minerals 1 TAB PO SCH (08:56)
[2021-11-02] MEDS: Ferrous Gluconate 324 MG TAB PO SCH ×2 (08:56→21:25)
[2021-11-02] MEDS ORDERED: Loratadine 10 MG TAB PO PRN (13:26)
[2021-11-02] MEDS: Losartan 25 MG TAB PO SCH (17:56)
[2021-11-02] MEDS ORDERED: Non-Formulary Item 1 EACH (Olmesartan Medoxomil [Olmesartan Medoxomil] 40 MG Tablet) PO SCH (21:00)
[2021-11-02] MEDS: FLUoxetine HCl 10 MG CAP PO SCH (21:25)
[2021-11-03] MEDS: Sodium Chloride 0.9% 1,000 ML IV SCH ×2 (00:12→13:09)
[2021-11-03] MEDS: Ketorolac Tromethamine 30 MG/ML VIAL IVP SCH ×2 (06:08→11:45)
[2021-11-03 06:09] LABS: Hemoglobin 9.5 g/dL (12.0-16.0); Mean Corpuscular HGB CONC 33.4 g/dL (32.0-36.0); Mean Corpuscular Hemoglobin 32.6 pg (27.0-31.0); Mean Corpuscular Volume 97.7 fL (78.0-98.0); Mean Platelet Volume 7.4 fL (7.4-10.4); Platelet Count 245 thou/uL (130-400); RBC Distribution Width 12.4 % (11.5-14.5); Red Blood Cell (RBC) Count 2.92 mill/uL (4.20-5.40); White Blood Cell (WBC) Count 9.2 thou/uL (4.8-10.8)
[2021-11-03 06:46] LABS: Anion Gap 17 mmol/L (10-20); BUN (Urea Nitrogen) 20 mg/dL (9.8-20.1); Calc. Creatinine Clearance 77 mL/min (70-130); Calcium 8.9 mg/dL (7.8-10.44); Carbon Dioxide 22 mmol/L (23-31); Chloride 102 mmol/L (98-107); Estimated GFR 77; Glucose 103 mg/dL (83-110); Potassium 3.8 mmol/L (3.5-5.1); Sodium 137 mmol/L (136-145)
[2021-11-03] MEDS: Chlorthalidone 25 MG TAB PO SCH (08:59)
[2021-11-03] MEDS: Potassium Chloride 10 MEQ TAB PO SCH (09:00)
[2021-11-03] MEDS: Zinc Sulfate 220 MG CAP PO SCH (09:00)
[2021-11-03] MEDS: Multivitamin W/ Minerals 1 TAB PO SCH (09:00)
[2021-11-03] MEDS: Cyanocobalamin (Vitamin B-12) 1,000 MCG TAB PO SCH (09:00)
[2021-11-03] MEDS: Ferrous Gluconate 324 MG TAB PO SCH ×2 (09:00→21:16)
[2021-11-03] MEDS: Aspirin 81 mg Enteric Coated Tablet PO SCH ×2 (09:00→21:16)
[2021-11-03] MEDS: Senokot S 8.6-50 MG TAB PO SCH ×2 (09:01→21:16)
[2021-11-03] MEDS: Losartan 25 MG TAB PO SCH (16:34)
[2021-11-03] MEDS: FLUoxetine HCl 10 MG CAP PO SCH (21:15)
[2021-11-04] MEDS: Sodium Chloride 0.9% 1,000 ML IV SCH ×2 (00:32→05:23)
[2021-11-04 05:24] LABS: Hemoglobin 9.6 g/dL (12.0-16.0); Mean Corpuscular HGB CONC 33.1 g/dL (32.0-36.0); Mean Corpuscular Hemoglobin 32.4 pg (27.0-31.0); Mean Platelet Volume 7.2 fL (7.4-10.4); Platelet Count 241 thou/uL (130-400); RBC Distribution Width 12.3 % (11.5-14.5); Red Blood Cell (RBC) Count 2.96 mill/uL (4.20-5.40); White Blood Cell (WBC) Count 8.5 thou/uL (4.8-10.8)
[2021-11-04] MEDS ORDERED: HYDROcodone/Acetaminophen 10/325 mg Tablet PO PRN ×2 (08:46)
[2021-11-04] MEDS ORDERED: Cyclobenzaprine 10 MG TAB PO PRN (08:46)
[2021-11-04] MEDS: Cyanocobalamin (Vitamin B-12) 1,000 MCG TAB PO SCH (10:11)
[2021-11-04] MEDS: Aspirin 81 mg Enteric Coated Tablet PO SCH (10:12)
[2021-11-04] MEDS: Zinc Sulfate 220 MG CAP PO SCH (10:12)
[2021-11-04] MEDS: Multivitamin W/ Minerals 1 TAB PO SCH (10:12)
[2021-11-04] MEDS: Ferrous Gluconate 324 MG TAB PO SCH (10:13)
[2021-11-04] MEDS: Senokot S 8.6-50 MG TAB PO SCH (10:13)
[2021-11-04] MEDS: Potassium Chloride 10 MEQ TAB PO SCH (10:13)
[2021-11-04] MEDS: Chlorthalidone 25 MG TAB PO SCH (10:40)
[2021-11-04 11:24] VITALS: BP 152/82; TEMP 98.5
== END 2021-11-04 12:42 | disposition home health service (06) | DRG 470 ==
LOC: SURG A 11-01 07:16 → SJJU 11-01 16:29
PROVIDERS: ADMIT Orthopaedic Surgery; ATTEND Orthopaedic Surgery
PROC: 0SRB04Z Replacement of Left Hip Joint with Ceramic on Polyethylene Synthetic Substitute, Open Approach (ICD-10-PCS; principal; 2021-11-01)
DX: M16.12 Unilateral primary osteoarthritis, left hip (principal); Z20.822 Contact with and (suspected) exposure to COVID-19; G89.29 Other chronic pain; M54.9 Dorsalgia, unspecified; G43.909 Migraine, unspecified, not intractable, without status migrainosus; E78.5 Hyperlipidemia, unspecified; K21.9 Gastro-esophageal reflux disease without esophagitis; F41.0 Panic disorder [episodic paroxysmal anxiety]; E66.9 Obesity, unspecified; F32.A Depression, unspecified; G47.33 Obstructive sleep apnea (adult) (pediatric); D64.9 Anemia, unspecified; I12.9 Hypertensive chronic kidney disease with stage 1 through stage 4 chronic kidney disease, or unspecified chronic kidney disease; N18.30 Chronic kidney disease, stage 3 unspecified; Z86.73 Personal history of transient ischemic attack (TIA), and cerebral infarction without residual deficits; Z88.8 Allergy status to other drugs, medicaments and biological substances; Z88.1 Allergy status to other antibiotic agents; Z90.710 Acquired absence of both cervix and uterus; Z90.49 Acquired absence of other specified parts of digestive tract; Z98.49 Cataract extraction status, unspecified eye; Z87.891 Personal history of nicotine dependence; Z79.899 Other long term (current) drug therapy; Z82.49 Family history of ischemic heart disease and other diseases of the circulatory system; Z82.3 Family history of stroke; Z68.33 Body mass index [BMI] 33.0-33.9, adult
CPT/HCPCS: 36415; 72170; 80048; 85027; C1776; J0690; J0694; J1100; J1885; J2405; J2704; J2710; J3370; J3490; J7050

== ENCOUNTER 2022-01-16 10:43 | Outpatient (CLI) | payer MEDICARE, OTHER ==
[2022-01-16 13:14] LABS: Hemoglobin 11.6 g/dL (12.0-15.5); Mean Corpuscular HGB CONC 33.6 g/dL (32.0-36.0); Mean Corpuscular Hemoglobin 30.1 pg (27.0-33.0); Mean Corpuscular Volume 89.4 fl (81.6-98.3); Mean Platelet Volume 9.9 fl (7.4-10.4); Platelet Count 323 10x3/uL (150-450); Red Blood Cell (RBC) Count 3.86 10x6/uL (3.90-5.03); White Blood Cell (WBC) Count 6.7 10x3/uL (3.5-10.5)
[2022-01-16 13:42] LABS: Anion Gap 15 mmol/L (10-20); BUN (Urea Nitrogen) 16 mg/dL (9.8-20.1); Calc. Creatinine Clearance 0 mL/min (70-130); Calcium 9.6 mg/dL (7.8-10.44); Carbon Dioxide 25 mmol/L (23-31); Chloride 98 mmol/L (98-107); Estimated GFR 71; Glucose 101 mg/dL (83-110); Potassium 4.1 mmol/L (3.5-5.1); Sodium 134 mmol/L (136-145)
== END 2022-01-16 10:44 | disposition home or self-care (01) ==
LOC: LABBT 10:43
PROVIDERS: ATTEND Anesthesiology Pain Medicine
DX: Z01.818 Encounter for other preprocedural examination (principal); Z20.822 Contact with and (suspected) exposure to COVID-19
CPT/HCPCS: 80048; 85027; 87811; 93005; 93010